=== PATIENT | female | born 1985 | race Caucasian/White ===

== ENCOUNTER 2019-04-18 15:35 | Outpatient (CLI) | payer BC ==
[~2019-04-18] VITALS: Ht 165.1 cm; Wt 92.7 kg
[2019-04-18 15:50] VITALS: BP 133/75
[2019-04-18 16:32] LABS: MICROSCOPIC INDICATED
[2019-04-18] MEDS ORDERED: TERBUTALINE 1 MG/ML, 1ML ONE (17:22)
[2019-04-18] MEDS ORDERED: TERBUTALINE 1 MG/ML, 1ML SQ ONE (17:30)
== END 2019-04-18 18:31 | disposition home or self-care (01) ==
LOC: LDOP 15:35
PROVIDERS: ATTEND Obstetrics & Gynecology Maternal & Fetal Medicine
DX: O26.893 Other specified pregnancy related conditions, third trimester (principal); R10.9 Unspecified abdominal pain; Z3A.32 32 weeks gestation of pregnancy; Z88.0 Allergy status to penicillin; Z88.5 Allergy status to narcotic agent; Z88.1 Allergy status to other antibiotic agents; Z88.2 Allergy status to sulfonamides; Z88.6 Allergy status to analgesic agent
CPT/HCPCS: 59025; 81001; 87086; 96372; 99211; J3105; G0463

== ENCOUNTER 2019-04-27 23:36 | Outpatient (CLI) | payer BC ==
[2019-04-27 23:41] VITALS: BP 95/64
[2019-04-28] MEDS ORDERED: TERBUTALINE 1 MG/ML, 1ML SQ ONE
[2019-04-28 00:01] LABS: MICROSCOPIC INDICATED
== END 2019-04-28 01:20 | disposition home or self-care (01) ==
LOC: LDOP 23:36
PROVIDERS: ATTEND Obstetrics & Gynecology Maternal & Fetal Medicine
DX: O62.9 Abnormality of forces of labor, unspecified (principal); Z88.0 Allergy status to penicillin; Z3A.34 34 weeks gestation of pregnancy; Z88.8 Allergy status to other drugs, medicaments and biological substances
CPT/HCPCS: 59025; 81001; 87086; 99211; J3105; G0463

== ENCOUNTER 2019-05-02 19:50 | Observation (INO) | payer BC ==
[~2019-05-02] VITALS: Ht 165.1 cm; Wt 92.7 kg
[2019-05-02 19:40] VITALS: BP 148/78
[2019-05-02 20:06] LABS: MICROSCOPIC INDICATED
[2019-05-02] MEDS ORDERED: MEPERIDINE/PF 50 MG/ML ONE (21:09)
[2019-05-02] MEDS ORDERED: PROMETHAZINE 25 MG/ML, 1ML ONE (21:12)
[2019-05-02 21:28] LABS: BASOPHILS # (AUTO) 0.02 x10^3/uL (0-0.1); BASOPHILS % (AUTO) 0 % (0-1); EOSINOPHILS % (AUTO) 1 % (1-7); LYMPHOCYTES # (AUTO) 1.37 x10^3/uL (1-3.4); LYMPHOCYTES % (AUTO) 17 % (22-44); MD NO; MEAN CORPUSCULAR HEMOGLOBIN 27.3 pg (27.0-34.8); MEAN CORPUSCULAR VOLUME 82.7 fL (80-100); MEAN PLATELET VOLUME 7.5 fL (7.4-10.4); MONOCYTES # (AUTO) 0.56 x10^3/uL (0.2-0.8); MONOCYTES % (AUTO) 7 % (2-9); NEUTROPHILS # (AUTO) 6.11 x10^3/uL (1.8-6.8); NEUTROPHILS % (AUTO) 75 % (42-75); PLATELET COUNT 320 x10^3/uL (130-400); RED BLOOD COUNT 4.02 x10^6/uL (3.82-5.3); RED CELL DISTRIBUTION WIDTH 16.1 % (9.6-15.2)
[2019-05-02] MEDS ORDERED: LACTATED RINGERS 1,000 ML IV SCH (21:30)
[2019-05-02] MEDS ORDERED: PROMETHAZINE 25 MG/ML, 1ML IM ONE (21:30)
[2019-05-02] MEDS ORDERED: MEPERIDINE/PF 50 MG/ML IM PRN (21:30)
[2019-05-02 21:40] LABS: ALANINE AMINOTRANSFERASE 12 U/L (12-78); ALBUMIN 2.6 g/dL (3.4-5.0); ANION GAP 7 mmol/L (5-15); BILIRUBIN, DIRECT 0.1 mg/dL (0.1-0.2); CALCIUM 8.9 mg/dL (8.5-10.1); CHLORIDE 110 mmol/L (98-107); CREATININE 0.61 mg/dL (0.55-1.02)
[2019-05-02 21:42] LABS: ALKALINE PHOSPHATASE 108 U/L (45-117); BILIRUBIN,TOTAL 0.4 mg/dL (0.2-1.0); TOTAL PROTEIN 6.8 g/dL (6.4-8.2)
[2019-05-02] MEDS ORDERED: MAGNESIUM SULF. PMX 20GM/500ML 0 ML IV ONE (22:37)
[2019-05-02] MEDS ORDERED: TERBUTALINE 1 MG/ML, 1ML IV ONE (23:00)
[2019-05-02] MEDS ORDERED: TERBUTALINE 1 MG/ML, 1ML ONE (23:00)
[2019-05-03] MEDS ORDERED: ZOLPIDEM 5MG TABLET ONE (00:45)
[2019-05-03] MEDS ORDERED: ZOLPIDEM 5MG TABLET PO PRN (01:00)
[2019-05-03] MEDS ORDERED: BETAMETHASONE 6 MG/ML, 5ML IM ONE (07:18)
[2019-05-03] MEDS ORDERED: BETAMETHASONE 6 MG/ML, 5ML IM SCH (07:30)
[2019-05-20] MEDS ORDERED: IBUP-1222 PO (09:05)
[2019-05-20] MEDS ORDERED: HYDR-3240 PO (09:05)
[2019-05-20] MEDS ORDERED: FERR325T5 PO (09:06)
== END 2019-05-03 10:20 | disposition home or self-care (01) ==
LOC: LDOP 19:50 → LDIP 22:42
PROVIDERS: ADMIT Obstetrics & Gynecology Maternal & Fetal Medicine; ATTEND Obstetrics & Gynecology Maternal & Fetal Medicine
DX: O60.03 Preterm labor without delivery, third trimester (principal); O99.513 Diseases of the respiratory system complicating pregnancy, third trimester; J45.909 Unspecified asthma, uncomplicated; O34.219 Maternal care for unspecified type scar from previous cesarean delivery; Z3A.34 34 weeks gestation of pregnancy; Z87.442 Personal history of urinary calculi; Z79.899 Other long term (current) drug therapy
CPT/HCPCS: 36415; 76770; 80053; 81001; 82248; 84443; 84550; 85025; 96372; 96374; G0378; J0702; J2175; J2550; J3105; J7120; 96360; 96361; 96375; 96376

== ENCOUNTER 2019-05-07 19:24 | Outpatient (CLI) | payer BC ==
[~2019-05-07] VITALS: Ht 165.1 cm; Wt 93.0 kg
[2019-05-07 19:34] VITALS: BP 138/77
[2019-05-07 19:54] LABS: MICROSCOPIC INDICATED
[2019-05-07] MEDS: D5%-LACTATED RINGERS 1,000 ML IV SCH ×2 (20:13→22:00)
[2019-05-07] MEDS ORDERED: TERBUTALINE 1 MG/ML, 1ML SQ ONE (20:30)
[2019-05-07] MEDS ORDERED: TERBUTALINE 1 MG/ML, 1ML ONE (20:36)
[2019-05-07] MEDS ORDERED: DIPHENHYDRAMINE 50 MG/ML, 1ML ONE (21:55)
[2019-05-07] MEDS ORDERED: DIPHENHYDRAMINE 50 MG/ML, 1ML IVPush ONE (21:55)
[2019-05-07] MEDS ORDERED: D5%-LACTATED RINGERS 1,000 ML IV SCH (22:13)
[2019-05-20] MEDS ORDERED: IBUP-1222 PO (09:05)
[2019-05-20] MEDS ORDERED: HYDR-3240 PO (09:05)
[2019-05-20] MEDS ORDERED: FERR325T5 PO (09:06)
== END 2019-05-07 23:50 | disposition home or self-care (01) ==
LOC: LDOP 19:24 → UNDOADMOB 21:13 → LDIP 21:13 → UNDODISOB 23:50 → LDOP 23:50
PROVIDERS: ATTEND Obstetrics & Gynecology Maternal & Fetal Medicine
DX: O26.893 Other specified pregnancy related conditions, third trimester (principal); O99.613 Diseases of the digestive system complicating pregnancy, third trimester; R19.7 Diarrhea, unspecified; R11.0 Nausea; R10.9 Unspecified abdominal pain; Z3A.35 35 weeks gestation of pregnancy
CPT/HCPCS: 59025; 81001; 87086; 96361; 96372; 96374; 99211; J1200; J3105; J7121; 96360; G0378; G0463